=== PATIENT | male | born 1985 | race African-American/Black ===

== ENCOUNTER 2017-05-06 11:47 | Emergency (ER) | payer OTHER, SELFPAY ==
[2017-05-06] MEDS ORDERED: Dexamethasone 10 MG/ML VIAL ONE (12:52)
== END 2017-05-06 14:12 | disposition home or self-care (01) ==
LOC: ERS 11:47
DX: J45.901 Unspecified asthma with (acute) exacerbation (principal); Z87.891 Personal history of nicotine dependence
CPT/HCPCS: 94640; J1100; J7620

== ENCOUNTER 2017-09-19 22:37 | Emergency (ER) | payer OTHER ==
[2017-09-19] MEDS ORDERED: Dexamethasone 4 mg/ml Vial ONE (23:07)
--- NOTE | 2017-09-19 23:08 | RAD ---
SINGLE VIEW OF THE CHEST: 09/19/17 COMPARISON: None. HISTORY: Wheezing and asthma flare up. Cough. FINDINGS: Single view of the chest shows a normal sized cardiomediastinal silhouette. There is no evidence of c onsolidation, mass, or pleural effusion. The bones are unremarkable. IMPRESSION: No evidence of acute cardiopulmonary disease. POS: [facility]
== END 2017-09-20 00:52 | disposition home or self-care (01) ==
LOC: ERS 22:37
DX: J45.901 Unspecified asthma with (acute) exacerbation (principal); Z87.891 Personal history of nicotine dependence
CPT/HCPCS: 71045; 94640; J1100; J7620

== ENCOUNTER 2017-10-10 10:09 | Emergency (ER) | payer OTHER ==
--- NOTE | 2017-10-10 13:06 | RAD ---
RIGHT HAND THREE VIEWS: 10/10/2017 HISTORY: Right hand injury. FINDINGS: There is no evidence of a fracture, dislocation, or other osseous abnormality involving the right perez d. IMPRESSION: No acute osseous abnormality. POS: [facility]
== END 2017-10-10 11:23 | disposition home or self-care (01) ==
LOC: ERS 10:09
DX: S60.221A Contusion of right hand, initial encounter (principal); R45.4 Irritability and anger; J45.909 Unspecified asthma, uncomplicated; Z79.899 Other long term (current) drug therapy; Z87.891 Personal history of nicotine dependence; W22.8XXA Striking against or struck by other objects, initial encounter

== ENCOUNTER 2017-12-20 21:36 | Emergency (ER) | payer OTHER ==
[2017-12-20] MEDS ORDERED: Dexamethasone 10 MG/ML VIAL ONE (21:55)
[2017-12-20] MEDS ORDERED: methylPREDNISolone Sod Succ/PF 125 MG/2 ML VIAL ONE (22:05)
--- NOTE | 2017-12-20 22:06 | RAD ---
FRONTAL RADIOGRAPH CHEST: 12/20/2017 HISTORY: Cough. Congestion. Wheezing. COMPARISON: 11/19/2017 FINDINGS: No pneumothorax, pleural fluid, focal consolidation, or alveolar edema. Heart and mediastinal contou rs appear grossly unremarkable. IMPRESSION: No acute findings. POS: [facility]
[2017-12-20] MEDS ORDERED: Albuterol Sulfate 2.5 mg/3 ml Neb ONE (22:09)
[2017-12-20 22:36] LABS: #Eosinphils 0.5 thou/uL (0.0-0.7); #Lymphocytes 2.8 thou/uL (1.20-3.40); #Monocytes 0.8 thou/uL (0.11-0.59); #Neutrophils 2.1 thou/uL (1.40-6.50); %Basophils 0.5 % (0.0-1.0); %Eosinophils 7.8 % (0.0-10.0); %Lymphocytes 44.9 % (21.0-51.0); %Monocytes 12.3 % (0.0-10.0); %Neutrophils 34.5 % (42.0-75.0); Hemoglobin 15.6 g/dL (14.0-18.0); Mean Corpuscular Hemoglobin 28.6 pg (27.0-31.0); Mean Corpuscular Volume 89.4 fL (78.0-98.0); Mean Platelet Volume 7.2 fL (7.4-10.4); Platelet Count 265 thou/uL (130-400); RBC Distribution Width 11.8 % (11.5-14.5); Red Blood Cell (RBC) Count 5.46 mill/uL (4.70-6.10); White Blood Cell (WBC) Count 6.2 thou/uL (4.8-10.8)
[2017-12-20] MEDS ORDERED: Magnesium 2 GM/50 ML 2 GM in Premix Bag 1 BAG IVPB SCH (22:45)
== END 2017-12-21 03:00 | disposition short-term general hospital (02) ==
LOC: ERS 21:36
DX: J45.901 Unspecified asthma with (acute) exacerbation (principal); Z87.891 Personal history of nicotine dependence
CPT/HCPCS: 71045; 82550; 85025; 94760; 96361; 96365; 96375; J1100; J2930; J7611; J7620

== ENCOUNTER 2019-08-19 02:15 | Emergency (ER) | payer SELFPAY ==
[2019-08-19] MEDS ORDERED: methylPREDNISolone Sod Succ/PF 125 MG/2 ML VIAL ONE (03:33)
[2019-08-19] MEDS ORDERED: Albuterol Sulfate 2.5 mg/3 ml Neb ONE (04:08)
[2019-08-19] MEDS ORDERED: Magnesium 2 GM/50 ML BAG (IN WATER) ONE (04:28)
--- NOTE | 2019-08-19 09:47 | RAD ---
PORTABLE CHEST: HISTORY: Dyspnea. COMPARISON: 12/20/2017. FINDINGS: Lung laguna are clear. Heart and mediastinum appear normal. Vasculature normal. IMPRESSION: No acute finding. POS: [facility]
== END 2019-08-19 05:58 | disposition home or self-care (01) ==
LOC: ERS 02:15
DX: J45.901 Unspecified asthma with (acute) exacerbation (principal); Z87.891 Personal history of nicotine dependence
CPT/HCPCS: 71045; 96361; 96365; 96375; J2930; J3475; J7611; J7620

== ENCOUNTER 2020-03-27 11:15 | Emergency (ER) | payer SELFPAY ==
[2020-03-27 11:55] LABS: Hemoglobin 16.3 g/dL (14.0-18.0); Mean Corpuscular HGB CONC 32.4 g/dL (32.0-36.0); Mean Corpuscular Hemoglobin 29.1 pg (27.0-31.0); Mean Platelet Volume 7.5 fL (7.4-10.4); Platelet Count 218 thou/uL (130-400); RBC Distribution Width 12.3 % (11.5-14.5); White Blood Cell (WBC) Count 6.9 thou/uL (4.8-10.8)
[2020-03-27] MEDS ORDERED: Acetaminophen 500 MG TAB ONE (12:01)
[2020-03-27 12:16] LABS: ALT (SGPT) 27 U/L (8-55); AST (SGOT) 23 U/L (5-34); Albumin 4.6 g/dL (3.5-5.0); Alkaline Phosphatase 77 U/L (40-110); Anion Gap 14 mmol/L (10-20); BUN (Urea Nitrogen) 12 mg/dL (8.9-20.6); Bilirubin, Total 0.4 mg/dL (0.2-1.2); Calc. Creatinine Clearance 0 mL/min (70-130); Calcium 9.2 mg/dL (7.8-10.44); Carbon Dioxide 27 mmol/L (22-29); Chloride 103 mmol/L (98-107); Globulin 2.8 g/dL (2.4-3.5); Glucose 95 mg/dL (70-105); Potassium 4.1 mmol/L (3.5-5.1); Protein, Total 7.4 g/dL (6.0-8.3); Sodium 140 mmol/L (136-145)
--- NOTE | 2020-03-27 12:24 | RAD ---
XR Chest 1 View Portable History: Cough Comparison: Radiograph August 2019 Findings: Lungs are clear. No pneumothorax or effusion. Cardiac silhouette and mediastinal contours a re within normal limits. No acute osseous abnormality. Impression: No acute intrathoracic abnormality.
[2020-03-27 12:41] LABS: Band 9 % (5-11); Eosinophils 1 % (0-10); Lymphocytes 10 % (21-51); MDiff Complete? YES; Metamyelocyte 1 % (0-0); Monocytes 18 % (0-10); Neutrophil 55 % (42-75); RBC Morphology Normal; Reactive Lymphocytes 3 % (0-10)
[2020-03-27] MEDS ORDERED: Ibuprofen 800 MG TAB ONE (13:35)
--- NOTE | 2020-03-31 14:01 | EKG ---
Test Reason : TACHY Blood Pressure : / mmHG Vent. Rate : 102 BPM Atrial Rate : 102 BPM P-R Int : 180 ms QRS Dur : 090 ms QT Int : 320 ms P-R-T Axes : 069 002 034 degrees QTc Int : 417 ms Sinus tachycardia Confirmed by OLE MELLO DO ([id number]), acquisitions editor DEVIN ROMO ([id number]) on 03/31/2020 2:00:56 PM Referred By: RIAZ Confirmed By:OLE MELLO DO
== END 2020-03-27 14:27 | disposition home or self-care (01) ==
LOC: ERS 11:15
DX: J06.9 Acute upper respiratory infection, unspecified (principal); R00.0 Tachycardia, unspecified; E86.0 Dehydration; Z20.822 Contact with and (suspected) exposure to COVID-19; J45.909 Unspecified asthma, uncomplicated; Z87.891 Personal history of nicotine dependence
CPT/HCPCS: 71045; 80053; 83605; 84484; 85025; 85379; 93005

== ENCOUNTER 2020-08-31 22:00 | Emergency (ER) | payer SELFPAY ==
[2020-08-31] MEDS ORDERED: predniSONE 20 MG TAB ONE (22:35)
== END 2020-09-01 01:13 | disposition home or self-care (01) ==
LOC: ERS 22:00
DX: J45.901 Unspecified asthma with (acute) exacerbation (principal); Z87.891 Personal history of nicotine dependence
CPT/HCPCS: 94640; J7512; J7620

== ENCOUNTER 2021-03-11 21:01 | Emergency (ER) | payer BC ==
[2021-03-11] MEDS ORDERED: Ibuprofen 200 MG TAB ONE (22:12)
[2021-03-12 13:15] LABS: SARS-CoV-2 PCR by NAA DETECTED (NotDetected)
== END 2021-03-11 23:24 | disposition home or self-care (01) ==
LOC: ERS 21:01
DX: U07.1 COVID-19 (principal); J45.909 Unspecified asthma, uncomplicated; Z87.891 Personal history of nicotine dependence; Z79.52 Long term (current) use of systemic steroids; Z79.899 Other long term (current) drug therapy
CPT/HCPCS: 99283; U0003; U0005

== ENCOUNTER 2021-07-11 19:17 | Emergency (ER) | payer BC ==
[2021-07-11] MEDS ORDERED: predniSONE 20 MG TAB ONE (20:15)
== END 2021-07-11 20:29 | disposition home or self-care (01) ==
LOC: ERS 19:17
DX: J45.901 Unspecified asthma with (acute) exacerbation (principal); Z79.51 Long term (current) use of inhaled steroids; Z87.891 Personal history of nicotine dependence
CPT/HCPCS: 94640; J7512

== ENCOUNTER 2021-07-30 15:16 | Emergency (ER) | payer BC | END 2021-07-30 16:13 | disposition home or self-care (01) | LOC: ERS 15:16 | DX: Z76.0 Encounter for issue of repeat prescription (principal); J45.909 Unspecified asthma, uncomplicated | CPT/HCPCS: 99281 ==

== ENCOUNTER 2021-08-05 10:35 | Emergency (ER) | payer BC ==
[2021-08-05] MEDS ORDERED: Ketorolac Tromethamine 30 MG/ML VIAL ONE ×2 (11:17)
[2021-08-05] MEDS ORDERED: Albuterol 200 PUFF (6.7GM INHALER) ONE (11:26)
== END 2021-08-05 12:00 | disposition home or self-care (01) ==
LOC: ERS 10:35
DX: M54.50 Low back pain, unspecified (principal); J45.901 Unspecified asthma with (acute) exacerbation; Z79.51 Long term (current) use of inhaled steroids
CPT/HCPCS: 96372; J1885

== ENCOUNTER 2021-10-01 15:28 | Inpatient (IN) | payer BC ==
[2021-10-01 15:50] LABS: #Basophils 0.1 thou/uL (0.0-0.2); #Eosinphils 0.8 thou/uL (0.0-0.7); #Monocytes 0.6 thou/uL (0.11-0.59); #Neutrophils 3.3 thou/uL (1.40-6.50); %Eosinophils 12.1 % (0.0-10.0); %Lymphocytes 29.3 % (21.0-51.0); %Monocytes 9.3 % (0.0-10.0); %Neutrophils 48.3 % (42.0-75.0); Hemoglobin 16.8 g/dL (14.0-18.0); Mean Corpuscular HGB CONC 32.9 g/dL (32.0-36.0); Mean Corpuscular Hemoglobin 30.1 pg (27.0-31.0); Mean Corpuscular Volume 91.6 fL (78.0-98.0); Mean Platelet Volume 7.2 fL (7.4-10.4); Platelet Count 349 thou/uL (130-400); RBC Distribution Width 12.2 % (11.5-14.5); Red Blood Cell (RBC) Count 5.59 mill/uL (4.70-6.10); White Blood Cell (WBC) Count 6.8 thou/uL (4.8-10.8)
[2021-10-01 16:12] LABS: ALT (SGPT) 21 U/L (8-55); AST (SGOT) 24 U/L (5-34); Albumin 4.8 g/dL (3.5-5.0); Alkaline Phosphatase 75 U/L (40-110); Anion Gap 15 mmol/L (10-20); BUN (Urea Nitrogen) 20 mg/dL (8.9-20.6); Bilirubin, Total 0.3 mg/dL (0.2-1.2); Calc. Creatinine Clearance 0 mL/min (70-130); Carbon Dioxide 24 mmol/L (22-29); Chloride 106 mmol/L (98-107); Estimated GFR 89; Glucose 86 mg/dL (70-105); Potassium 3.9 mmol/L (3.5-5.1); Protein, Total 7.8 g/dL (6.0-8.3); Sodium 141 mmol/L (136-145)
[2021-10-01] MEDS ORDERED: predniSONE 20 MG TAB ONE (17:26)
[2021-10-01] MEDS ORDERED: Albuterol Sulfate 2.5 mg/0.5 ml Neb ONE ×2 (17:34→18:03)
[2021-10-01] MEDS ORDERED: Diazepam 10 MG/2 ML SYRINGE ONE (17:50)
[2021-10-01] MEDS ORDERED: Magnesium 2 GM/50 ML(in water) 2 GM in Premix Bag 1 BAG IVPB SCH (18:00)
[2021-10-01] MEDS ORDERED: Albuterol Sulfate 2.5 mg/3 ml Neb ONE (18:03)
[2021-10-01] MEDS ORDERED: Acetaminophen 650 MG Suppository PR PRN (20:22)
[2021-10-01] MEDS ORDERED: Ondansetron PF 4 MG/2 ML Vial IVP PRN (20:22)
[2021-10-01] MEDS ORDERED: Ondansetron ODT 4 MG TAB PO PRN (20:22)
[2021-10-01] MEDS ORDERED: Acetaminophen 325 MG TAB PO PRN (20:22)
[2021-10-01 21:35] LABS: SARS-CoV-2 NAA Rapid Test Not Detected (NotDetected)
[2021-10-01 22:48] VITALS: BMI 26.0
[2021-10-02 06:47] LABS: Anion Gap 15 mmol/L (10-20); BUN (Urea Nitrogen) 21 mg/dL (8.9-20.6); Calc. Creatinine Clearance 122 mL/min (70-130); Carbon Dioxide 23 mmol/L (22-29); Chloride 104 mmol/L (98-107); Estimated GFR 114; Glucose 117 mg/dL (70-105); Potassium 4.4 mmol/L (3.5-5.1); Sodium 138 mmol/L (136-145)
[2021-10-02 06:48] LABS: #Lymphocytes 0.8 thou/uL (1.20-3.40); #Monocytes 0.3 thou/uL (0.11-0.59); #Neutrophils 6.7 thou/uL (1.40-6.50); %Basophils 0.2 % (0.0-1.0); %Eosinophils 0.2 % (0.0-10.0); %Lymphocytes 10.3 % (21.0-51.0); %Monocytes 3.8 % (0.0-10.0); %Neutrophils 85.4 % (42.0-75.0); Hemoglobin 16.6 g/dL (14.0-18.0); Mean Corpuscular HGB CONC 32.5 g/dL (32.0-36.0); Mean Corpuscular Hemoglobin 30.1 pg (27.0-31.0); Mean Corpuscular Volume 92.3 fL (78.0-98.0); Mean Platelet Volume 7.9 fL (7.4-10.4); Platelet Count 323 thou/uL (130-400); RBC Distribution Width 12.3 % (11.5-14.5); Red Blood Cell (RBC) Count 5.52 mill/uL (4.70-6.10); White Blood Cell (WBC) Count 7.8 thou/uL (4.8-10.8)
[2021-10-02] MEDS: methylPREDNISolone Sod Succ 40 MG VIAL IVP SCH (08:14)
[2021-10-02] MEDS ORDERED: Albuterol Sulfate 2.5 mg/3 ml Neb NEB PRN (12:00)
[2021-10-03 04:05] LABS: #Eosinphils 0.2 thou/uL (0.0-0.7); #Lymphocytes 2.2 thou/uL (1.20-3.40); #Monocytes 0.7 thou/uL (0.11-0.59); #Neutrophils 7.8 thou/uL (1.40-6.50); %Basophils 0.3 % (0.0-1.0); %Eosinophils 1.7 % (0.0-10.0); %Lymphocytes 20.1 % (21.0-51.0); %Monocytes 6.6 % (0.0-10.0); %Neutrophils 71.2 % (42.0-75.0); Hemoglobin 17.1 g/dL (14.0-18.0); Mean Corpuscular HGB CONC 32.8 g/dL (32.0-36.0); Mean Corpuscular Hemoglobin 30.5 pg (27.0-31.0); Mean Corpuscular Volume 92.9 fL (78.0-98.0); Mean Platelet Volume 7.4 fL (7.4-10.4); Platelet Count 315 thou/uL (130-400); RBC Distribution Width 12.3 % (11.5-14.5); Red Blood Cell (RBC) Count 5.62 mill/uL (4.70-6.10)
[2021-10-03 04:18] LABS: ALT (SGPT) 24 U/L (8-55); AST (SGOT) 23 U/L (5-34); Albumin 4.4 g/dL (3.5-5.0); Alkaline Phosphatase 63 U/L (40-110); Anion Gap 18 mmol/L (10-20); BUN (Urea Nitrogen) 18 mg/dL (8.9-20.6); Bilirubin, Total 0.4 mg/dL (0.2-1.2); Calc. Creatinine Clearance 133 mL/min (70-130); Calcium 9.6 mg/dL (7.8-10.44); Carbon Dioxide 22 mmol/L (22-29); Chloride 103 mmol/L (98-107); Estimated GFR 117; Globulin 2.5 g/dL (2.4-3.5); Glucose 104 mg/dL (70-105); Potassium 3.5 mmol/L (3.5-5.1); Protein, Total 6.9 g/dL (6.0-8.3); Sodium 139 mmol/L (136-145)
[2021-10-03] MEDS: methylPREDNISolone Sod Succ 40 MG VIAL IVP SCH (07:22)
[2021-10-03 11:27] VITALS: TEMP 98.1
[2021-10-03] MEDS ORDERED: predniSONE 20 MG TAB PO SCH (12:30)
[2021-10-03] MEDS ORDERED: Famotidine 20 MG TAB PO SCH (21:00)
== END 2021-10-03 12:59 | disposition home or self-care (01) | DRG 189 ==
LOC: ERS 15:28 → IMCU/EMU 19:23
PROVIDERS: ADMIT Student in an Organized Health Care Education/Training Program; ATTEND Student in an Organized Health Care Education/Training Program
PROC: 5A09357 Assistance with Respiratory Ventilation, Less than 24 Consecutive Hours, Continuous Positive Airway Pressure (ICD-10-PCS; principal; 2021-10-01)
DX: J96.01 Acute respiratory failure with hypoxia (principal); J45.51 Severe persistent asthma with (acute) exacerbation; Z20.822 Contact with and (suspected) exposure to COVID-19; Z79.51 Long term (current) use of inhaled steroids; Z72.0 Tobacco use
CPT/HCPCS: 36415; 71045; 80048; 80053; 85025; 94640; J2920; J3360; J3475; J7512; J7611; J7620

== ENCOUNTER 2021-11-21 09:33 | Emergency (ER) | payer BC, SELFPAY ==
[2021-11-21] MEDS ORDERED: Albuterol Sulfate 2.5 mg/3 ml Neb ONE (09:49)
[2021-11-21] MEDS ORDERED: predniSONE 20 MG TAB ONE (11:25)
== END 2021-11-21 12:28 | disposition home or self-care (01) ==
LOC: ERS 09:33
DX: J45.901 Unspecified asthma with (acute) exacerbation (principal); Z79.899 Other long term (current) drug therapy
CPT/HCPCS: 71045; 71046; 94640; J7512; J7611; J7620

== ENCOUNTER 2022-05-22 04:23 | Inpatient (IN) | payer SELFPAY ==
[2022-05-22] MEDS ORDERED: Ipratropium/Albuterol 3 ML NEB ONE ×2 (04:33→05:07)
[2022-05-22] MEDS ORDERED: predniSONE 20 MG TAB ONE (04:33)
[2022-05-22] MEDS ORDERED: Magnesium 2 GM/50 ML BAG (IN WATER) ONE (04:48)
[2022-05-22 05:01] LABS: #Basophils 0.1 thou/uL (0.0-0.2); #Eosinphils 0.5 thou/uL (0.0-0.7); #Lymphocytes 1.5 thou/uL (1.20-3.40); #Monocytes 0.8 thou/uL (0.11-0.59); %Basophils 1.2 % (0.0-1.0); %Eosinophils 6.1 % (0.0-10.0); %Lymphocytes 19.4 % (21.0-51.0); %Monocytes 10.2 % (0.0-10.0); %Neutrophils 63.2 % (42.0-75.0); Hemoglobin 17.1 g/dL (14.0-18.0); Mean Corpuscular HGB CONC 33.3 g/dL (32.0-36.0); Mean Platelet Volume 7.5 fL (7.4-10.4); Platelet Count 293 10x3/uL (130-400); RBC Distribution Width 12.3 % (11.5-14.5); Red Blood Cell (RBC) Count 5.69 mill/uL (4.70-6.10); White Blood Cell (WBC) Count 7.9 10x3/uL (4.8-10.8)
[2022-05-22 05:22] LABS: ALT (SGPT) 35 U/L (8-55); AST (SGOT) 45 U/L (5-34); Albumin 4.9 g/dL (3.5-5.0); Alkaline Phosphatase 81 U/L (40-110); Anion Gap 15 mmol/L (10-20); BUN (Urea Nitrogen) 14 mg/dL (8.9-20.6); Bilirubin, Total 0.4 mg/dL (0.2-1.2); Calc. Creatinine Clearance 0 mL/min (70-130); Calcium 9.8 mg/dL (7.8-10.44); Carbon Dioxide 25 mmol/L (22-29); Chloride 103 mmol/L (98-107); Estimated GFR 112; Globulin 2.9 g/dL (2.4-3.5); Glucose 94 mg/dL (70-105); Potassium 3.4 mmol/L (3.5-5.1); Protein, Total 7.8 g/dL (6.0-8.3); Sodium 140 mmol/L (136-145)
[2022-05-22] MEDS ORDERED: Azithromycin 500 MG VIAL ONE (07:55)
[2022-05-22] MEDS ORDERED: cefTRIAXone\\ROCEPHIN 2 GM VIAL ONE (07:55)
[2022-05-22] MEDS ORDERED: Electrolyte Replacement Protocol 1 EACH FS SCH (08:00)
[2022-05-22] MEDS ORDERED: Potassium Chloride 20 MEQ TAB PO SCH (08:00)
[2022-05-22] MEDS ORDERED: Senokot S 8.6-50 MG TAB PO PRN (10:27)
[2022-05-22] MEDS ORDERED: Acetaminophen 325 MG TAB PO PRN (10:27)
[2022-05-22] MEDS ORDERED: Ondansetron ODT 4 MG TAB PO PRN (10:27)
[2022-05-22] MEDS ORDERED: Ondansetron PF 4 MG/2 ML Vial IVP PRN (10:27)
[2022-05-22] MEDS ORDERED: Calcium Carbonate 500 MG ChewTAB PO PRN (10:27)
[2022-05-22] MEDS ORDERED: Ipratropium/Albuterol 3 ML NEB NEB PRN (10:29)
[2022-05-22 10:46] VITALS: BMI 29.5
[2022-05-22] MEDS: Ipratropium/Albuterol 3 ML NEB NEB SCH ×4 (11:24→21:29)
[2022-05-22] MEDS: methylPREDNISolone Sod Succ 40 MG VIAL IVP SCH ×3 (11:35→22:58)
[2022-05-22] MEDS: Mometasone/Formoterol 200/5 60 PUFF INH SCH (18:54)
[2022-05-22] MEDS: Famotidine 20 MG TAB PO SCH (19:40)
[2022-05-22] MEDS: guaiFENesin ER 600 MG TAB PO SCH (19:40)
[2022-05-22] MEDS ORDERED: Montelukast Sodium 10 mg Tablet PO SCH (21:00)
[2022-05-23] MEDS: Ipratropium/Albuterol 3 ML NEB NEB SCH ×3 (01:29→10:51)
[2022-05-23 05:07] VITALS: TEMP 97.7
[2022-05-23] MEDS: methylPREDNISolone Sod Succ 40 MG VIAL IVP SCH (05:51)
[2022-05-23 06:04] LABS: #Lymphocytes 0.7 thou/uL (1.20-3.40); #Monocytes 0.5 thou/uL (0.11-0.59); #Neutrophils 9.9 thou/uL (1.40-6.50); %Basophils 0.1 % (0.0-1.0); %Eosinophils 0.1 % (0.0-10.0); %Lymphocytes 6.6 % (21.0-51.0); %Monocytes 4.5 % (0.0-10.0); %Neutrophils 88.7 % (42.0-75.0); Hemoglobin 15.3 g/dL (14.0-18.0); Mean Corpuscular HGB CONC 33.8 g/dL (32.0-36.0); Mean Corpuscular Hemoglobin 30.6 pg (27.0-31.0); Mean Corpuscular Volume 90.5 fl (78.0-98.0); Mean Platelet Volume 7.5 fL (7.4-10.4); Platelet Count 285 10x3/uL (130-400); RBC Distribution Width 12.3 % (11.5-14.5); White Blood Cell (WBC) Count 11.2 10x3/uL (4.8-10.8)
[2022-05-23 06:31] LABS: ALT (SGPT) 28 U/L (8-55); AST (SGOT) 34 U/L (5-34); Albumin 4.1 g/dL (3.5-5.0); Alkaline Phosphatase 66 U/L (40-110); Anion Gap 12 mmol/L (10-20); BUN (Urea Nitrogen) 17 mg/dL (8.9-20.6); Bilirubin, Total 0.2 mg/dL (0.2-1.2); Calc. Creatinine Clearance 144 mL/min (70-130); Calcium 9.2 mg/dL (7.8-10.44); Carbon Dioxide 22 mmol/L (22-29); Chloride 107 mmol/L (98-107); Estimated GFR 116; Globulin 2.4 g/dL (2.4-3.5); Glucose 119 mg/dL (70-105); Magnesium 2.1 mg/dL (1.6-2.6); Potassium 4.2 mmol/L (3.5-5.1); Protein, Total 6.5 g/dL (6.0-8.3); Sodium 137 mmol/L (136-145)
[2022-05-23] MEDS: Mometasone/Formoterol 200/5 60 PUFF INH SCH (06:49)
[2022-05-23 08:58] VITALS: BP 134/83
[2022-05-23] MEDS ORDERED: Azithromycin 250 MG TAB PO SCH (09:00)
[2022-05-23] MEDS ORDERED: Loratadine 10 MG TAB PO SCH (09:00)
[2022-05-23] MEDS ORDERED: predniSONE 20 MG TAB PO SCH ×2 (09:15→17:00)
[2022-05-23] MEDS: guaiFENesin ER 600 MG TAB PO SCH (09:47)
[2022-05-23] MEDS: Famotidine 20 MG TAB PO SCH (09:48)
== END 2022-05-23 10:55 | disposition home or self-care (01) | DRG 189 ==
LOC: ERS 04:23 → ERHOLD 08:04 → SURG B 10:34
PROVIDERS: ADMIT Internal Medicine; ATTEND Internal Medicine
DX: J96.01 Acute respiratory failure with hypoxia (principal); J45.901 Unspecified asthma with (acute) exacerbation; E87.6 Hypokalemia; Z79.51 Long term (current) use of inhaled steroids; Z79.899 Other long term (current) drug therapy; Z20.822 Contact with and (suspected) exposure to COVID-19
CPT/HCPCS: 36415; 71045; 80053; 83735; 84484; 85025; 87040; 93005; 94640; 94644; J0456; J0696; J2920; J3475; J7512; J7620; U0003; U0005

== ENCOUNTER 2023-05-26 19:59 | Emergency (ER) | payer SELFPAY ==
[2023-05-26] MEDS ORDERED: methylPREDNISolone Sod Succ/PF 125 MG/2 ML VIAL ONE (21:41)
[2023-05-26 22:05] LABS: #Basophils 0.1 thou/uL (0.0-0.2); #Monocytes 0.5 thou/uL (0.11-0.59); #Neutrophils 3.8 thou/uL (1.40-6.50); %Basophils 1.3 % (0.0-1.0); %Eosinophils 12.9 % (0.0-10.0); %Lymphocytes 29.2 % (21.0-51.0); %Monocytes 6.6 % (0.0-10.0); %Neutrophils 49.7 % (42.0-75.0); Hematocrit 53.3 % (42.0-52.0); Mean Corpuscular HGB CONC 33.8 g/dL (32.0-36.0); Mean Platelet Volume 9.9 fL (7.4-10.4); Platelet Count 331 10x3/uL (130-400); White Blood Cell (WBC) Count 7.6 10x3/uL (4.8-10.8)
[2023-05-26] MEDS ORDERED: Ipratropium/Albuterol 3 ML NEB ONE (22:30)
[2023-05-26] MEDS ORDERED: Albuterol 2.5 MG (3 mL) NEB ONE (22:31)
[2023-05-26 22:32] LABS: ALT (SGPT) 37 U/L (8-55); AST (SGOT) 34 U/L (5-34); Albumin 5.1 g/dL (3.5-5.0); Alkaline Phosphatase 91 U/L (40-110); Anion Gap 16 mmol/L (10-20); BUN (Urea Nitrogen) 14 mg/dL (8.9-20.6); Bilirubin, Total 0.3 mg/dL (0.2-1.2); Calc. Creatinine Clearance 0 mL/min (70-130); Calcium 10.3 mg/dL (7.8-10.44); Carbon Dioxide 23 mmol/L (22-29); Chloride 106 mmol/L (98-107); Estimated GFR 116; Globulin 2.5 g/dL (2.4-3.5); Glucose 90 mg/dL (70-105); Potassium 4.1 mmol/L (3.5-5.1); Protein, Total 7.6 g/dL (6.0-8.3); Sodium 141 mmol/L (136-145)
[2023-05-26 22:45] LABS: Influenza A by NAA Not Detected (NotDetected); Influenza B by NAA Not Detected (NotDetected); SARS-CoV-2 NAA Rapid Test Not Detected (NotDetected)
== END 2023-05-27 00:03 | disposition home or self-care (01) ==
LOC: ERS 19:59
DX: J45.901 Unspecified asthma with (acute) exacerbation (principal); Z79.899 Other long term (current) drug therapy
CPT/HCPCS: 36415; 71045; 80053; 84145; 85025; 96374; J2930; J7611; J7620

== ENCOUNTER 2023-08-30 11:40 | Inpatient (IN) | payer SELFPAY ==
[2023-08-30] MEDS ORDERED: Dexamethasone 10 MG/ML VIAL ONE (12:10)
[2023-08-30] MEDS ORDERED: Acetaminophen 500 MG TAB ONE (12:10)
[2023-08-30 12:13] LABS: #Basophils 0.05 10x3/uL (0.0-0.2); %Basophils 0.4 % (0.0-1.0); %Eosinophils 0.7 % (0.0-10.0); %Neutrophils 90.6 % (42.0-75.0); Hematocrit 46.4 % (42.0-52.0); Hemoglobin 16.2 g/dL (14.0-18.0); Mean Corpuscular HGB CONC 34.9 g/dL (32.0-36.0); Mean Corpuscular Hemoglobin 28.8 pg (27.0-31.0); Mean Corpuscular Volume 82.4 fL (78.0-98.0); Mean Platelet Volume 9.9 fL (7.4-10.4); Platelet Count 273 10x3/uL (130-400); RBC Distribution Width 12.8 % (11.5-14.5); Red Blood Cell (RBC) Count 5.63 mill/uL (4.70-6.10)
[2023-08-30] MEDS ORDERED: Albuterol 2.5 MG (0.5 mL) NEB ONE (12:15)
[2023-08-30] MEDS ORDERED: Albuterol 2.5 MG (3 mL) NEB ONE (12:15)
[2023-08-30] MEDS ORDERED: Ipratropium Bromide 2.5 ml Neb ONE (12:15)
[2023-08-30 12:23] LABS: Actual Bicarbonate (HCO3v) 24.4 mEq/L (22-28); Analyzer IN Cardio ER; Base Excess 2.7 mEq/L (-2.0 to +3.0); Calcium, Ionized (venous) 1.06 mmol/L (1.16-1.32); Chloride (VBG) 98 mmol/L (98-106); Hematocrit-VBG 49 % (42.0-52.0); Hemoglobin (Hb) 16.8 g/dL (13.2-17.3); Potassium (VBG) 3.48 mmol/L (3.70-5.30); Sodium 137 mmol/L (133-146); pH (venous) 7.525 (7.32-7.43)
[2023-08-30 12:31] LABS: ALT (SGPT) 49 U/L (8-55); AST (SGOT) 35 U/L (5-34); Albumin 3.6 g/dL (3.5-5.0); Alkaline Phosphatase 80 U/L (40-110); Anion Gap 18 mmol/L (10-20); BUN (Urea Nitrogen) 11 mg/dL (8.9-20.6); Bilirubin, Total 0.5 mg/dL (0.2-1.2); Calc. Creatinine Clearance 0 mL/min (70-130); Calcium 9.6 mg/dL (7.8-10.44); Carbon Dioxide 24 mmol/L (22-29); Chloride 100 mmol/L (98-107); Estimated GFR 114; Globulin 3.7 g/dL (2.4-3.5); Glucose 157 mg/dL (70-105); Potassium 3.2 mmol/L (3.5-5.1); Protein, Total 7.3 g/dL (6.0-8.3); Sodium 139 mmol/L (136-145)
[2023-08-30 13:08] LABS: Influenza A by NAA Not Detected (NotDetected); Influenza B by NAA Not Detected (NotDetected); SARS-CoV-2 NAA Rapid Test Not Detected (NotDetected)
[2023-08-30] MEDS ORDERED: Sodium Chloride 0.9% 100 ML ONE (13:48)
[2023-08-30] MEDS ORDERED: Magnesium 2 GM/50 ML BAG (IN WATER) ONE (13:48)
[2023-08-30] MEDS ORDERED: Azithromycin 250 MG TAB ONE (13:48)
[2023-08-30] MEDS ORDERED: cefTRIAXone (ROCEPHIN) 1 GM VIAL ONE (13:48)
[2023-08-30] MEDS ORDERED: HYDROcodone/Acetaminophen 5/325 mg Tablet PO PRN (13:51)
[2023-08-30] MEDS ORDERED: Acetaminophen 325 MG TAB PO PRN (13:51)
[2023-08-30] MEDS ORDERED: Ondansetron PF 4 MG/2 ML Vial IVP PRN (13:51)
[2023-08-30] MEDS ORDERED: Ipratropium/Albuterol 3 ML NEB NEB PRN (13:53)
[2023-08-30] MEDS ORDERED: Electrolyte Replacement Protocol 1 EACH FS SCH (14:15)
[2023-08-30 16:01] VITALS: BMI 27.4
[2023-08-30] MEDS: Potassium Chloride 20 MEQ TAB PO SCH ×2 (16:46→17:14)
[2023-08-30] MEDS: methylPREDNISolone Sod Succ 40 MG VIAL IVP SCH (17:15)
[2023-08-30] MEDS: Sodium Chloride 0.9% 1,000 ML IV SCH (17:15)
[2023-08-30] MEDS: guaiFENesin ER 600 MG TAB PO SCH ×3 (17:25→22:15)
[2023-08-30] MEDS: Ipratropium/Albuterol 3 ML NEB NEB SCH (19:40)
[2023-08-30] MEDS: Montelukast Sodium 10 mg Tablet PO SCH (22:16)
[2023-08-30] MEDS: Famotidine 20 MG TAB PO SCH (22:16)
[2023-08-31 06:43] LABS: #Basophils Less than 0.03 10x3/uL (0.0-0.2); #Eosinphils Less than 0.03 10x3/uL (0.0-0.7); %Basophils 0.1 % (0.0-1.0); %Lymphocytes 6.6 % (21.0-51.0); %Monocytes 1.9 % (0.0-10.0); Hematocrit 41.6 % (42.0-52.0); Mean Corpuscular HGB CONC 33.7 g/dL (32.0-36.0); Mean Corpuscular Hemoglobin 29.3 pg (27.0-31.0); Mean Platelet Volume 10.1 fL (7.4-10.4); Platelet Count 277 10x3/uL (130-400); RBC Distribution Width 13.2 % (11.5-14.5); Red Blood Cell (RBC) Count 4.78 mill/uL (4.70-6.10)
[2023-08-31 07:25] LABS: Anion Gap 17 mmol/L (10-20); BUN (Urea Nitrogen) 11 mg/dL (8.9-20.6); Calc. Creatinine Clearance 130 mL/min (70-130); Carbon Dioxide 20 mmol/L (22-29); Chloride 108 mmol/L (98-107); Estimated GFR 115; Glucose 232 mg/dL (70-105); Potassium 3.5 mmol/L (3.5-5.1); Sodium 141 mmol/L (136-145)
[2023-08-31] MEDS: Doxycycline 100 MG CAP PO SCH (09:10)
[2023-08-31] MEDS: Enoxaparin 40 MG (0.4 mL) SYRINGE SC SCH (09:10)
[2023-08-31] MEDS: Potassium Chloride 20 MEQ TAB PO SCH (09:16)
[2023-08-31 09:20] VITALS: BP 151/76; TEMP 98.3
[2023-08-31] MEDS ORDERED: Electrolyte Replacement Protocol FS PRN (11:00)
[2023-08-31] MEDS: cefTRIAXone\\ROCEPHIN 2 GM in Sodium Chloride 0.9% 100 ML IVPB SCH (13:24)
== END 2023-08-31 15:40 | disposition home or self-care (01) | DRG 202 ==
LOC: ERS 11:40 → ERHOLD 13:57 → MSONC 15:51
PROVIDERS: ADMIT Family Medicine; ATTEND Hospitalist
DX: J21.8 Acute bronchiolitis due to other specified organisms (principal); J18.9 Pneumonia, unspecified organism; J45.51 Severe persistent asthma with (acute) exacerbation; E87.6 Hypokalemia; Z71.6 Tobacco abuse counseling; Z79.51 Long term (current) use of inhaled steroids; Z72.0 Tobacco use
CPT/HCPCS: 36415; 71046; 80048; 80053; 82805; 85025; 87070; 87077; 87205; 94640; 94760; 96374; 96375; J0696; J1100; J1650; J2920; J3475; J3490; J7050; J7611; J7620